=== PATIENT | male | born 1995 | race Caucasian/White ===

== ENCOUNTER → 2020-07-21 | Outpatient (CLI) | payer OTHER, BC ==
--- NOTE | 2020-07-21 16:56 | KCIC ---
Examination: MRI of the right knee without contrast HISTORY: History of right knee pain, lateral knee pain COMPARISON: None TECHNIQUE: Multiplanar, multisequence MR imaging of the right knee was performed without contrast FINDINGS: The anterior cruciate ligament, posterior cruciate ligament appear intact. The medial, lateral menisc us appears intact. There is mild increased signal identified deep to the fibers of the medial collate ral ligament likely secondary to injury or sprain. The lateral collateral ligamentous complex includi ng the fibular collateral ligament, biceps femoris tendon, popliteus tendon appears intact. Small knee joint effusion is identified. The medial, lateral retinaculum appears intact. The cartilage in the medial, lateral, patellofemoral compartments grossly appears unremarkable. Mild increased T2 signal identified in the soft tissue anterior to the infrapatellar tendon. IMPRESSION: 1. Mild increased signal identified deep to the fibers of the medial collateral ligament likely seco ndary to injury or sprain. 2. Small knee joint effusion. 3. Mild increased T2 signal identified in the soft tissue anterior to the infrapatellar tendon could be a small hematoma or edema or bursal fluid. Electronically signed by: Luis Canales MD (07/21/2020 4:53 PM) [id number]
== END ==
LOC: KCIC MRI 12:22
PROVIDERS: ATTEND Nurse Practitioner Family
DX: M25.461 Effusion, right knee (principal); M25.561 Pain in right knee
CPT/HCPCS: 73721